=== PATIENT | male | born 1995 | race Hispanic/Latino ===

== ENCOUNTER 2017-02-19 19:31 | Emergency (ER) | payer OTHER ==
[2017-02-19 19:38] VITALS: BMI 29.0
[2017-02-19] MEDS ORDERED: Sodium Chloride 0.9% 1,000 ML IV STA (19:40)
[2017-02-19 19:42] VITALS: BP 154/80; TEMP 99
[2017-02-19 20:26] LABS: BASO # 0.02 K/mm3 (0.0-2.0); BASO % 0.2 % (0.0-3.0); EOS % 0.4 % (1.5-5.0); GRAN # 7.67 (1.4-6.5); HEMATOCRIT 47.8 % (42.0-52.0); LYMPH # 1.3 (1.2-3.4); LYMPH % 12.2 % (22.0-35.0); MEAN CELL VOLUME 87.4 fl (80.0-105.0); MEAN CORPUSCULAR HEMOGLOBIN 31.1 pg (25.0-35.0); MEAN CORPUSCULAR HGB CONC 35.6 g/dl (31.0-37.0); MEAN PLATELET VOLUME 11.4 fl (7.0-11.0); MONO # 1.4 (0.1-0.6); MONO % 13.2 % (1.0-6.0); RED CELL DISTRIBUTION WIDTH 12.7 % (11.5-14.5); WHITE BLOOD COUNT 10.4 10^3/ul (4.5-11.0)
[2017-02-19 20:32] LABS: ALB/GLOB RATIO 1.2 (1.1-1.8); ALKALINE PHOSPHATASE 116 U/L (38-126); ALT/SGPT 147 U/L (7-56); AST/SGOT 127 U/L (17-59); BILIRUBIN,TOTAL 1.1 mg/dL (0.2-1.3); BLOOD UREA NITROGEN 10 mg/dL (7-21); CALCIUM 9.6 mg/dL (8.4-10.5); CARBON DIOXIDE 29 mmol/L (21-33); CHLORIDE 97 mmol/L (98-107); GFR AFRICAN-AMERICAN > 60; GLUCOSE,RANDOM 104 mg/dL (70-110); INR 1.39 (0.93-1.08); LIPASE 57 U/L (23-300); POTASSIUM 3.9 mmol/L (3.6-5.0); SODIUM 137 mmol/L (132-148); TOTAL PROTEIN 7.7 g/dL (5.8-8.3)
[2017-02-19 21:19] LABS: PH,URINE 6.5 (4.7-8.0); URINE BILIRUBIN MODERATE (NEGATIVE); URINE BLOOD SMALL (NEGATIVE); URINE GLUCOSE (UA) NEGATIVE (NEGATIVE); URINE KETONE >=80 mg/dL (NEGATIVE); URINE LEUKOCYTE ESTERASE NEGATIVE Leu/uL (NEGATIVE); URINE PROTEIN 100 mg/dL (<30 mg/dL)
[2017-02-19 21:21] LABS: URINE APPEARANCE CLEAR (CLEAR); URINE COLOR DARK YELLOW (YELLOW)
[2017-02-19 21:22] LABS: URINE BACTERIA TRACE (NEG)
--- NOTE | 2017-02-19 21:43 | ED PDOC ---
Arrival/HPI - General Chief Complaint: GI Problem Time Seen by Provider: 02/19/17 19:40 Historian: Patient - History of Present Illness Narrative History of Present Illness (Text): 02/19/17 21:38 21yo male with no PMhx present with complaint of nausea, vomiting, diarrhea, sore throat and subjective fever x6days. PAtient was seen by the PMD on Tuesday and strep test was negative at that time. The mother states the PMD gave patient for lab if her continue having symptom, to r/o mono. Patient did not take any medication at home. Denies sick contact, travel, hematuria, Le edema, dizziness, travel. Past Medical History - Provider Review Nursing Documentation Reviewed: Yes - Past History Past History: No Previous - Infectious Disease Hx of Infectious Diseases: None - Tetanus Immunization Tetanus Immunization: Up to Date - Psychiatric Hx Depression: No Hx Emotional Abuse: No Hx Physical Abuse: No Hx Substance Use: No - Past Surgical History Past Surgical History: No Previous - Anesthesia Hx Anesthesia: No - Suicidal Assessment Feels Threatened In Home Enviroment: No Family/Social History - Physician Review Nursing Documentation Reviewed: Yes Family/Social History: Unknown Family HX Smoking Status: Light Smoker < 10 Cigarettes Daily Hx Alcohol Use: Yes Frequency of alcohol use: Socially Hx Substance Use: No Hx Substance Use Treatment: No Allergies/Home Meds Allergies/Adverse Reactions: Allergies No Known Allergies Allergy (Verified 12/16/12 20:56) Review of Systems - Physician Review All systems were reviewed & negative as marked: Yes - Review of Systems Constitutional: Fevers Eyes: Normal ENT: Sore Throat Respiratory: Normal Cardiovascular: Normal Gastrointestinal: Abdominal Pain, Diarrhea, Nausea, Vomiting. absent: Constipation, Hematochezia, Hematemesis Genitourinary Male: Normal Musculoskeletal: Normal Skin: Normal Neurological: Normal Endocrine: Normal Hemo/Lymphatic: Normal Psychiatric: Normal Physical Exam Vital Signs Reviewed: Yes Vital Signs Temp Pulse Resp BP Pulse Ox 02/19/17 19:41 99.0 F 102 H 18 154/80 H 100 Temperature: Afebrile Blood Pressure: Normal Pulse: Regular Respiratory Rate: Normal Appearance: Positive for: Well-Appearing, Non-Toxic, Comfortable Pain Distress: None Mental Status: Positive for: Alert and Oriented X 3 - Systems Exam Head: Present: Atraumatic, Normocephalic Pupils: Present: PERRL Extroacular Muscles: Present: EOMI Conjunctiva: Present: Normal Mouth: Present: Moist Mucous Membranes Pharnyx: Present: Normal. No: ERYTHEMA, EXUDATE, TONSILS ENLARGED, Peritonsilar Swelling, Uvular Deviation, Muffled/Hoarse Voice, Strider Neck: Present: Normal Range of Motion Respiratory/Chest: Present: Clear to Auscultation, Good Air Exchange. No: Respiratory Distress, Accessory Muscle Use Cardiovascular: Present: Regular Rate and Rhythm, Normal S1, S2. No: Murmurs Abdomen: Present: Normal Bowel Sounds, Other (Soft). No: Tenderness, Distention , Peritoneal Signs, Rebound, Guarding, McBurney's Point Tender, Rovsing's Sign Present Back: Present: Normal Inspection Upper Extremity: Present: Normal Inspection. No: Cyanosis, Edema Lower Extremity: Present: Normal Inspection. No: Edema Neurological: Present: GCS=15, CN II-XII Intact, Speech Normal Skin: Present: Warm, Dry, Normal Color. No: Rashes Psychiatric: Present: Alert, Oriented x 3, Normal Insight, Normal Concentration Medical Decision Making ED Course and Treatment: 02/19/17 21:44 PT in ED for stated history. He was comfortable nd not lethargic in ED Lab was nonspecific with elevated LFt's noted and normal Tbili likely viral cause. Pt was hydrated, zofran and pepcid given. He complained of headache while in ED and was given Tylenol. EBV is pending. All result was DW the pt. His symptoms are likely viral. He was advised to drink plenty of fluid. Zofran rx given. Advised to avoid strenuous activity / sport until his cleared by his PMD. TRT ED for any new or worsening symptoms - Lab Interpretations Lab Results: 02/19/17 19:57 02/19/17 19:57 Lab Results 02/19/17 20:45: Grp A Beta Strep Ag Negative 02/19/17 20:35: Urine Color Dark yellow, Urine Appearance Clear, Urine pH 6.5, Ur Specific [place] 1.025, Urine Protein 100 H, Urine Glucose (UA) Negative, Urine Ketones >=80, Urine Blood Small H, Urine Nitrate Negative, Urine Bilirubin Moderate H, Urine Urobilinogen 4.0 H, Ur Leukocyte Esterase Negative, Urine RBC 1 - 3, Urine WBC 1 - 3, Ur Epithelial Cells 1 - 3, Urine Bacteria Trace 02/19/17 19:57: Sodium 137, Potassium 3.9, Chloride 97 L, Carbon Dioxide 29, Anion Gap 15, BUN 10, Creatinine 1.0, Est GFR ( Amer) > 60, Est GFR (Non- Af Amer) > 60, Random Glucose 104, Calcium 9.6, Total Bilirubin 1.1, AST 127 H, ALT 147 H, Alkaline Phosphatase 116, Total Protein 7.7, Albumin 4.2, Globulin 3.6, Albumin/Globulin Ratio 1.2, Lipase 57 02/19/17 19:57: PT 15.3 H, INR 1.39 H, APTT 30.0 02/19/17 19:57: WBC 10.4, RBC 5.47, Hgb 17.0, Hct 47.8, MCV 87.4, MCH 31.1, MCHC 35.6, RDW 12.7, Plt Count 182, MPV 11.4 H, Gran % 74.0 H, Lymph % (Auto) 12.2 L, [place] % (Auto) 13.2 H, Eos % (Auto) 0.4 L, Baso % (Auto) 0.2, Gran # 7.67 H, Lymph # 1.3, Garfield # 1.4 H, Eos # 0.0, Baso # 0.02 - Medication Orders Current Medication Orders: Discontinued Medications Acetaminophen (Tylenol 325mg Tab) 650 mg PO STAT STA Stop: 02/19/17 21:18 Last Admin: 02/19/17 21:23 Dose: 650 mg MAR Pain/Vitals Document 02/19/17 21:23 SS (Rec: 02/19/17 21:23 SS [facility] [id number]) Pain Reassessment Is This A Pain ReAssessment? No Sleep Is patient sleeping during reassessment? No Presence of Pain Presence of Pain Yes Location Pain Location Body [employer] Famotidine (Pepcid) 20 mg IVP STAT STA Stop: 02/19/17 19:41 Last Admin: 02/19/17 20:02 Dose: 20 mg IVP Administration Document 02/19/17 20:02 SS (Rec: 02/19/17 20:08 SS [facility] [id number]) Charges for Administration # of IVP Administrations 1 Sodium Chloride (Sodium Chloride 0.9%) 1,000 mls @ 1,000 mls/hr IV .Q1H STA Stop: 02/19/17 20:39 Last Admin: 02/19/17 20:08 Dose: 1,000 mls/hr eMAR Start Stop Document 02/19/17 20:08 SS (Rec: 02/19/17 20:08 SS [facility] [id number]) Intravenous Solution Start Date 02/19/17 Start Time 20:08 End Date 02/19/17 End time 21:08 Total Infusion Time 60 Ondansetron HCl (Zofran Inj) 4 mg IVP STAT STA Stop: 02/19/17 19:41 Last Admin: 02/19/17 20:01 Dose: 4 mg IVP Administration Document 02/19/17 20:01 SS (Rec: 02/19/17 20:02 SS [facility] [id number]) Charges for Administration # of IVP Administrations 1 Disposition/Present on Arrival - Present on Arrival Any Indicators Present on Arrival: No History of DVT/PE: No History of Uncontrolled Diabetes: No Urinary Catheter: No History of Decub. Ulcer: No History Surgical Site Infection Following: None - Disposition Have Diagnosis and Disposition been Completed?: Yes Diagnosis: Viral syndrome Disposition: HOME/ ROUTINE Disposition Time: 21:50 Patient Plan: Discharge Condition: STABLE Discharge Instructions (ExitCare): Viral Syndrome (ED) Additional Instructions: Follow up with your doctor Avoid any strenuous activity/sport until cleared by your doctor Return to ED for any new or worsening symptoms Prescriptions: Ondansetron ODT [Zofran ODT] 4 mg PO Q6 #9 odt Referrals: PCP,NO [Primary Care Provider] - Follow up with primary Forms: [employer] (Polish)
[2017-02-19 22:17] VITALS: PULSE 82; RESP 20; O2SAT 98
[2017-02-23 23:42] LABS: EBV EA (D) AB IgG <9.00 U/mL (<9.00)
== END 2017-02-19 22:17 | disposition home or self-care (01) ==
LOC: ED 19:31
DX: B34.9 Viral infection, unspecified (principal); F17.210 Nicotine dependence, cigarettes, uncomplicated
CPT/HCPCS: 80053; 81001; 83690; 85025; 85610; 85730; 86663; 87070; 87430; 96361; 96374; 96375; 99283; J2405; J7040

== ENCOUNTER 2017-02-24 10:00 | Emergency (ER) | payer OTHER ==
[2017-02-24 10:01] VITALS: BMI 29.0
[2017-02-24 10:21] VITALS: RESP 18; TEMP 97.9
--- NOTE | 2017-02-24 10:53 | ED PDOC ---
Arrival/HPI - General Historian: Patient, Parent - History of Present Illness Time/Duration: < week Symptom Onset: Gradual Symptom Course: Unchanged Quality: Aching, Other (stinging ) Severity Level: Moderate Activities at Onset: Rest <Nick Chow - Last Filed: 02/24/17 14:07> <Del Sparrow - Last Filed: 02/24/17 14:32> - General Chief Complaint: Upper Extremity Problem/Injury Time Seen by Provider: 02/24/17 10:03 - History of Present Illness Narrative History of Present Illness (Text): 02/24/17 10:48 This is a 21 yo male with no significant past medical or surgical hx presenting to ER with chief complaint of B/L upper extremity pain. Pt is accompanied by his mother. Pt was recently seen in this ER on 02/19 with nausea, vomiting, diarrhea, dx with viral infection, and discharged home. He returns today with left forearm pain x 4 days and 1 day of right arm/shoulder pain. He denies trauma. He says this has never happened before. He does say he uses his arms a lot at work. He says the pain in his left arm is mainly located in his forearm and it is a "stinging, tingling" sensation. The pain on his right is more localized to his shoulder and it has an "achy" sensation. The pain on the left comes and goes while the pain on the right has been constant since starting yesterday. He denies any other systemic symptoms. He rates the pain 7/10 and says he has had trouble sleeping because of the pain. He has taken tylenol with no relief. Nothing makes it better or worse. PMH: Denies PSH: Denies Allergies: NKDA FH: lupus (mother) Home meds: none Social hx: cigar smoker. social drinker. denies drug use. 02/24/17 11:08 (Nick Chow) Past Medical History - Provider Review Nursing Documentation Reviewed: Yes - Past History Past History: No Previous - Infectious Disease Hx of Infectious Diseases: None - Tetanus Immunization Tetanus Immunization: Up to Date - Cardiac Hx Cardiac Disorders: No - Pulmonary Hx Respiratory Disorders: No - Neurological Hx Neurological Disorder: No - HEENT Hx HEENT Disorder: No - Renal Hx Renal Disorder: No - Endocrine/Metabolic Hx Endocrine Disorders: No - Hematological/Oncological Hx Blood Disorders: No - Integumentary Hx Dermatological Disorder: No - Musculoskeletal/Rheumatological Hx Musculoskeletal Disorders: No - Gastrointestinal Hx Gastrointestinal Disorders: No - Genitourinary/Gynecological Hx Genitourinary Disorders: No - Psychiatric Hx Psychophysiologic Disorder: No Hx Depression: No Hx Emotional Abuse: No Hx Physical Abuse: No Hx Substance Use: No - Past Surgical History Past Surgical History: No Previous - Anesthesia Hx Anesthesia: No - Suicidal Assessment Feels Threatened In Home Enviroment: No <Nick Chow - Last Filed: 02/24/17 14:07> Family/Social History - Physician Review Nursing Documentation Reviewed: Yes Family/Social History: Other (lupus) Smoking Status: Light Smoker < 10 Cigarettes Daily Hx Alcohol Use: Yes Hx Substance Use: No Hx Substance Use Treatment: No <Nick Chow - Last Filed: 02/24/17 14:07> Allergies/Home Meds <Nick Chow - Last Filed: 02/24/17 14:07> <Del Sparrow - Last Filed: 02/24/17 14:32> Allergies/Adverse Reactions: Allergies No Known Allergies Allergy (Verified 02/24/17 10:20) Home Medications: Home Meds Medication Instructions Recorded Confirmed Ondansetron ODT [Zofran ODT] 4 mg PO Q6 PRN 02/24/17 02/24/17 Review of Systems - Review of Systems Constitutional: absent: Weight Change, Fevers Eyes: absent: Vision Changes, Photophobia ENT: absent: Hearing Changes, Tinnitus Respiratory: absent: SOB, Cough Cardiovascular: absent: Chest Pain, Palpitations Gastrointestinal: absent: Abdominal Pain, Stool Changes Genitourinary Male: absent: Dysuria, Frequency Musculoskeletal: Myalgias. absent: Back Pain, Neck Pain, Joint Swelling Skin: absent: Rash, Pruritis Neurological: absent: Headache, Dizziness Endocrine: absent: Diaphoresis, Polyuria Hemo/Lymphatic: absent: Adenopathy, Easy Bleeding Psychiatric: absent: Anxiety, Depression <Nick Chow - Last Filed: 02/24/17 14:07> Physical Exam Vital Signs Reviewed: Yes Mental Status: Positive for: Alert and Oriented X 3 - Systems Exam Head: Present: Atraumatic, Normocephalic Pupils: Present: PERRL Extroacular Muscles: Present: EOMI Mouth: Present: Moist Mucous Membranes Respiratory/Chest: Present: Clear to Auscultation. No: Respiratory Distress Cardiovascular: Present: Regular Rate and Rhythm, Normal S1, S2 Abdomen: Present: Normal Bowel Sounds. No: Tenderness, Peritoneal Signs Upper Extremity: Present: Normal Inspection, NORMAL PULSES, Neurovascularly Intact, Other (minimal tenderness to palpation left forearm ). No: Cyanosis, Edema, Normal ROM (slightly reduced active and passive range of motion), Swelling, Erythema, Deformity Lower Extremity: Present: Normal Inspection. No: Edema Neurological: Present: CN II-XII Intact, Speech Normal Skin: Present: Warm, Dry Psychiatric: Present: Alert, Oriented x 3, Normal Insight, Normal Concentration <Nick Chow - Last Filed: 02/24/17 14:07> Temperature: Afebrile Blood Pressure: Normal Pulse: Tachycardic Respiratory Rate: Normal Appearance: Positive for: Non-Toxic <Del Sparrow - Last Filed: 02/24/17 14:32> Vital Signs Temp Pulse Resp BP Pulse Ox 02/24/17 11:45 86 18 104/71 98 02/24/17 10:13 97.9 F 95 H 18 102/69 97 Medical Decision Making <Nick Chow - Last Filed: 02/24/17 14:07> <Del Sparrow - Last Filed: 02/24/17 14:32> ED Course and Treatment: 02/24/17 10:57 21 yo male presenting with B/L arm pain -will order BMP -will give IV toradol -reassess (Nick Chow) 02/24/17 11:48 Patient Seen With Resident: In agreement with resident note which contains more details about the patient. Patient was seen and evaluated with resident. Came up with plan and treatment together. The patient is a 21 year old male with arm pain. The patient's treatment plan includes labs and PO Motrin. Patient did not want IV Toradol. After medication patient felt much better. Chemistry panel was normal. No electrolyte abnormalities. Mom has an autoimmune history so she will make sure he gets that work up with his primary care doctor. The patient will be discharged home. (Del Sparrow) - Lab Interpretations Lab Results: 02/24/17 11:00 Lab Results 02/24/17 11:00: Sodium 141, Potassium 4.1, Chloride 105, Carbon Dioxide 27, Anion Gap 13, BUN 12, Creatinine 0.9, Est GFR ( Amer) > 60, Est GFR (Non- Af Amer) > 60, Random Glucose 102, Calcium 9.6 - Medication Orders Current Medication Orders: Discontinued Medications Ibuprofen (Motrin Tab) 600 mg PO STAT STA Stop: 02/24/17 11:08 Last Admin: 02/24/17 11:13 Dose: 600 mg <Nick Chow - Last Filed: 02/24/17 14:07> - Scribe Statement The provider has reviewed the documentation as recorded by the Scribe <Del Sparrow - Last Filed: 02/24/17 14:32> - Scribe Statement Maricel Carey Provider Scribe Attestation: All medical record entries made by the Scribe were at my direction and personally dictated by me. I have reviewed the chart and agree that the record accurately reflects my personal performance of the history, physical exam, medical decision making, and the department course for this patient. I have also personally directed, reviewed, and agree with the discharge instructions and disposition. (Del Sparrow) Disposition/Present on Arrival - Present on Arrival Any Indicators Present on Arrival: No History of DVT/PE: No History of Uncontrolled Diabetes: No Urinary Catheter: No History of Decub. Ulcer: No History Surgical Site Infection Following: None - Disposition Have Diagnosis and Disposition been Completed?: Yes Disposition Time: 12:00 Patient Plan: Discharge <Nick Chow - Last Filed: 02/24/17 14:07> <Del Sparrow - Last Filed: 02/24/17 14:32> - Disposition Diagnosis: Arm pain, Muscular aches Disposition: HOME/ ROUTINE Condition: IMPROVED Discharge Instructions (ExitCare): Muscle Strain (ED), Peripheral Neuropathy ( ED) Additional Instructions: Mr Dobbins, thank you for letting us take care of you today. Your provider was Dr. Sparrow. You were treated for Neuropathy, Musculoskeletal. The emergency medical care you received today was directed at your acute symptoms. If you were prescribed any medication, please fill it and take as directed. It may take several days for your symptoms to resolve. Return to the Emergency Department if your symptoms worsen, do not improve, or if you have any other problems. Please contact your doctor or call one of the physicians/clinics you have been referred to that are listed on the Patient Visit Information form that is included in your discharge packet. Bring any paperwork you were given at discharge with you along with any medications you are taking to your follow up visit. Our treatment cannot replace ongoing medical care by a primary care provider (PCP) outside of the emergency department. Thank you for allowing the [facility] team to be part of your care today. If you had an X-Ray or CT scan: A Radiologist will review the ED reading if any change in treatment is needed we will contact you. If you had a blood, urine, or wound culture: It will take several days for the results, if any change in treatment is needed we will contact you. If you had an STI test: It will take 48 hours for the results. Please call after 1 week if you have not heard back. Prescriptions: Ibuprofen [Motrin] 600 mg PO Q6 PRN #30 tab PRN Reason: Pain, Moderate (4-7) Referrals: Hussein Quijano MD [Family Provider] - Follow up with primary Forms: [employer] (Serbian), WORK NOTE
[2017-02-24 11:26] LABS: BLOOD UREA NITROGEN 12 mg/dL (7-21); CALCIUM 9.6 mg/dL (8.4-10.5); CARBON DIOXIDE 27 mmol/L (21-33); CHLORIDE 105 mmol/L (98-107); GFR AFRICAN-AMERICAN > 60; GLUCOSE,RANDOM 102 mg/dL (70-110); POTASSIUM 4.1 mmol/L (3.6-5.0); SODIUM 141 mmol/L (132-148)
[2017-02-24 11:52] VITALS: BP 104/71; PULSE 86; O2SAT 98
== END 2017-02-24 11:54 | disposition home or self-care (01) ==
LOC: ED 10:00
DX: M79.1 Myalgia (principal); M79.602 Pain in left arm; M79.601 Pain in right arm

== ENCOUNTER 2018-07-05 22:58 | Emergency (ER) | payer BC, OTHER ==
[2018-07-05 22:58] VITALS: BMI 29.0
--- NOTE | 2018-07-06 00:29 | ED PDOC ---
Arrival/HPI - General Chief Complaint: Abnormal Skin Integrity Time Seen by Provider: 07/05/18 23:04 Historian: Patient - History of Present Illness Narrative History of Present Illness (Text): 07/06/18 00:30 22-year-old male presents today with a 2-day history of abscess to the left buttocks. Patient states he has been applying warm compresses and cream to the area. Patient states today he noticed some purulent discharge being released. Patient denies fevers or chills. He is complaining of pain to the site. No medications have been taken by mouth for pain at home. No other complaints Past Medical History - Provider Review Nursing Documentation Reviewed: Yes - Travel History Have you recently traveled outside [place] w/in the past 3 mons?: No - Past History Past History: No Previous - Infectious Disease Hx of Infectious Diseases: None - Tetanus Immunization Tetanus Immunization: Up to Date - Cardiac Hx Cardiac Disorders: No - Pulmonary Hx Respiratory Disorders: No - Neurological Hx Neurological Disorder: No - HEENT Hx HEENT Disorder: No - Renal Hx Renal Disorder: No - Endocrine/Metabolic Hx Endocrine Disorders: No - Hematological/Oncological Hx Blood Disorders: No - Integumentary Hx Dermatological Disorder: No - Musculoskeletal/Rheumatological Hx Musculoskeletal Disorders: No - Gastrointestinal Hx Gastrointestinal Disorders: No - Genitourinary/Gynecological Hx Genitourinary Disorders: No - Psychiatric Hx Psychophysiologic Disorder: No Hx Depression: No Hx Emotional Abuse: No Hx Physical Abuse: No Hx Substance Use: No - Past Surgical History Past Surgical History: No Previous - Anesthesia Hx Anesthesia: No - Suicidal Assessment Feels Threatened In Home Enviroment: No Family/Social History - Physician Review Nursing Documentation Reviewed: Yes Family/Social History: Unknown Family HX Smoking Status: Light Smoker < 10 Cigarettes Daily Hx Alcohol Use: Yes Hx Substance Use: No Hx Substance Use Treatment: No Allergies/Home Meds Allergies/Adverse Reactions: Allergies No Known Allergies Allergy (Verified 07/05/18 23:22) Review of Systems - Review of Systems Constitutional: absent: Fatigue, Fevers Respiratory: absent: SOB, Cough Cardiovascular: absent: Chest Pain, Palpitations Musculoskeletal: absent: Back Pain Skin: Abscess. absent: Pruritis Neurological: absent: Headache Physical Exam Vital Signs Reviewed: Yes Temperature: Afebrile Blood Pressure: Normal Pulse: Regular Respiratory Rate: Normal Appearance: Positive for: Well-Appearing, Non-Toxic, Comfortable Pain Distress: None Mental Status: Positive for: Alert and Oriented X 3 - Systems Exam Head: Present: Atraumatic Mouth: Present: Moist Mucous Membranes Respiratory/Chest: Present: Clear to Auscultation Cardiovascular: Present: Regular Rate and Rhythm Back: Present: Normal Inspection Neurological: Present: GCS=15, Speech Normal Skin: Present: Warm, Dry, Normal Color, Abscess (Left medial buttock; there is a tender 2cm area of erythema with purulent discharge noted; + fluctuance. slight surrounding induration.) Psychiatric: Present: Alert, Oriented x 3 Medical Decision Making ED Course and Treatment: 07/06/18 00:32 Patient is nontoxic well-appearing in no distress. Vital signs are stable. Motrin po keflex po Bactrim DS p.o. I&D performed Patient reassessment: Patient nontoxic well-appearing no distress with stable vital signs. Patient was advised to use warm compresses frequently. Return to the emergency room in 2 days for packing removal. return immediately if symptoms worsen persist or if new symptoms develop. Patient was advised to follow-up with a surgeon within the next 2 days. Patient verbalizes understanding of discharge instructions and need for immediate followup. All aspects of this case were discussed the attending of record. Impression: Abscess, buttock Motrin one tablet every 6 hours as needed for pain Keflex; 1 capsule 4 times daily x 7 days. Bactrim DS: One tablet twice daily x7 days Warm compresses frequently Return in 2 days for packing removal and wound check Follow up with the surgeon within the next 2 days. Return immediately if symptoms worsen persist or if new symptoms develop: High fevers, increasing pain, increasing redness, swelling or if any other concerning symptoms develop. Procedures - Incision and Drainage Site: left medial buttock Blade Size: 11 I & D Procedure: sterile drapes applied, sterile dressing applied, gauze wick placed Progress: Left buttocks/ medial aspect: Area was prepped and draped in sterile fashion. 6 cc of lidocaine 1% injected locally. Adequate anesthesia. Small quarter inch incision was made over the central fluctuance. Moderate amount of purulent discharge released. Wound explored for loculations. Quarter inch sterile gauze packing applied dressing placed. Patient tolerated procedure well. No complications. Disposition/Present on Arrival - Present on Arrival Any Indicators Present on Arrival: No History of DVT/PE: No History of Uncontrolled Diabetes: No Urinary Catheter: No History of Decub. Ulcer: No History Surgical Site Infection Following: None - Disposition Have Diagnosis and Disposition been Completed?: Yes Diagnosis: Abscess of buttock Disposition: HOME/ ROUTINE Disposition Time: 00:26 Patient Plan: Discharge Patient Problems: Current Active Problems Problem Status Onset Abscess of buttock Acute Condition: GOOD Discharge Instructions (ExitCare): Abscess Incision and Drainage, Boil (DC) Additional Instructions: Motrin one tablet every 6 hours as needed for pain Keflex; 1 capsule 4 times daily x 7 days. Bactrim DS: One tablet twice daily x7 days Warm compresses frequently Follow up with the surgeon within the next 2 days. Return in 2 days for packing removal and wound check Return immediately if symptoms worsen persist or if new symptoms develop: High fevers, increasing pain, increasing redness, swelling or if any other concerning symptoms develop. Prescriptions: Cephalexin [Keflex] 500 mg PO QID #28 capsule Ibuprofen [Motrin] 600 mg PO Q6H PRN #20 tab PRN Reason: pain/fever reduction Sulfamethoxazole/Trimethoprim [Bactrim DS 800 mg-160 mg] 1 tab PO BID #14 tab Referrals: Ya Ferrer MD [Staff Provider] - Follow up with primary Marilyn Martínez MD [Medical Doctor] - Follow up with primary [facility] [Outside] - Follow up with primary Forms: [employer] (Irish), WORK NOTE
[2018-07-06] MEDS: Tmp-Smz 800 mg-160 mg DS Tab PO STA (00:38)
[2018-07-06 00:56] VITALS: RESP 18; O2SAT 100
[2018-07-06] MEDS ORDERED: Lidocaine 1% Inj (20ml) ONE (00:56)
[2018-07-06 02:21] VITALS: BP 118/66; PULSE 82; TEMP 98.2
== END 2018-07-06 01:20 | disposition home or self-care (01) ==
LOC: ED 22:58
DX: L02.31 Cutaneous abscess of buttock (principal); F17.210 Nicotine dependence, cigarettes, uncomplicated

== ENCOUNTER 2018-07-08 11:34 | Emergency (ER) | payer BC ==
[2018-07-08 11:35] VITALS: BMI 29.0
[2018-07-08 11:40] VITALS: BP 101/67; PULSE 77; RESP 18; TEMP 98.2; O2SAT 100
--- NOTE | 2018-07-08 11:51 | ED PDOC ---
Arrival/HPI - General Chief Complaint: Abnormal Skin Integrity Time Seen by Provider: 07/08/18 11:38 Historian: Patient - History of Present Illness Narrative History of Present Illness (Text): 07/08/18 11:50 Patient is a 22yo M with no significant PMH presenting to ED for packing removal s/p I&D of L buttocks abscess on 07/06/18. Patient denies any drainage, bleeding, or severe pain at the site. He denies fever, chills, abdominal pain, nausea, vomiting. He reports taking his antibiotics daily. He has no other complaints today. Past Medical History - Past History Past History: No Previous - Infectious Disease Hx of Infectious Diseases: None - Tetanus Immunization Tetanus Immunization: Up to Date - Cardiac Hx Cardiac Disorders: No - Pulmonary Hx Respiratory Disorders: No - Neurological Hx Neurological Disorder: No - HEENT Hx HEENT Disorder: No - Renal Hx Renal Disorder: No - Endocrine/Metabolic Hx Endocrine Disorders: No - Hematological/Oncological Hx Blood Disorders: No - Integumentary Hx Dermatological Disorder: No - Musculoskeletal/Rheumatological Hx Musculoskeletal Disorders: No - Gastrointestinal Hx Gastrointestinal Disorders: No - Genitourinary/Gynecological Hx Genitourinary Disorders: No - Psychiatric Hx Psychophysiologic Disorder: No Hx Depression: No Hx Emotional Abuse: No Hx Physical Abuse: No Hx Substance Use: No - Past Surgical History Past Surgical History: No Previous - Anesthesia Hx Anesthesia: No Hx Anesthesia Reactions: No Hx Malignant Hyperthermia: No - Suicidal Assessment Feels Threatened In Home Enviroment: No Family/Social History Family/Social History: No Known Family HX Smoking Status: Light Smoker < 10 Cigarettes Daily Hx Alcohol Use: Yes Hx Substance Use: No Hx Substance Use Treatment: No Allergies/Home Meds Allergies/Adverse Reactions: Allergies No Known Allergies Allergy (Verified 07/08/18 11:40) Review of Systems - Review of Systems Constitutional: Normal. absent: Fevers Eyes: Normal ENT: Normal Respiratory: Normal. absent: SOB Cardiovascular: Normal. absent: Chest Pain Gastrointestinal: Normal. absent: Abdominal Pain, Diarrhea, Nausea, Vomiting Genitourinary Male: Normal, Other. absent: Dysuria Skin: Abscess Neurological: Normal Psychiatric: Normal Physical Exam Vital Signs Reviewed: Yes Vital Signs Temp Pulse Resp BP Pulse Ox 07/08/18 11:37 98.2 F 77 18 101/67 100 Temperature: Afebrile Blood Pressure: Normal Pulse: Regular Respiratory Rate: Normal Appearance: Positive for: Well-Appearing, Non-Toxic, Comfortable Pain Distress: None Mental Status: Positive for: Alert and Oriented X 3 - Systems Exam Head: Present: Atraumatic, Normocephalic Pupils: Present: PERRL Extroacular Muscles: Present: EOMI Conjunctiva: Present: Normal Mouth: Present: Moist Mucous Membranes Neck: Present: Normal Range of Motion Respiratory/Chest: Present: Clear to Auscultation, Good Air Exchange. No: Respiratory Distress, Accessory Muscle Use Cardiovascular: Present: Regular Rate and Rhythm, Normal S1, S2. No: Murmurs Abdomen: Present: Normal Bowel Sounds. No: Tenderness, Distention, Peritoneal Signs Upper Extremity: Present: Normal Inspection. No: Cyanosis, Edema Lower Extremity: No: Edema Neurological: Present: GCS=15, CN II-XII Intact, Speech Normal Skin: Present: Abscess (1x1cm well-healing abscess on L medial gluteal cheek. no drainage noted. ) Psychiatric: Present: Alert, Oriented x 3, Normal Insight, Normal Concentration Medical Decision Making ED Course and Treatment: 07/08/18 11:54 Packing removed. - Procedure PROCEDURE NOTE (Text): 07/08/18 11:54 Iodoform packing removed from abscess site. Patient tolerated procedure well. Disposition/Present on Arrival - Present on Arrival Any Indicators Present on Arrival: No History of DVT/PE: No History of Uncontrolled Diabetes: No Urinary Catheter: No History of Decub. Ulcer: No History Surgical Site Infection Following: None - Disposition Have Diagnosis and Disposition been Completed?: Yes Diagnosis: Abscess Disposition: HOME/ ROUTINE Disposition Time: 12:33 Patient Problems: Current Active Problems Problem Status Onset Abscess Acute Condition: STABLE Discharge Instructions (ExitCare): Abscess Incision and Drainage (DC) Additional Instructions: If you experience fever, chills, draining, bleeding, nausea, or vomiting or recurrence of symptoms, return to the emergency department. Please return to the emergency department in 3 days to remove your packing. Please follow up with your primary care physician for routine care. Forms: [employer] (Ukrainian)
[2018-07-08] MEDS ORDERED: Oxycodone/Acetaminophen 5/325 mg Tab PO STA (12:06)
== END 2018-07-08 12:45 | disposition home or self-care (01) ==
LOC: ED 11:34
DX: L02.31 Cutaneous abscess of buttock (principal)

== ENCOUNTER 2018-07-11 14:13 | Emergency (ER) | payer BC ==
[2018-07-11 14:13] VITALS: BMI 29.0
[2018-07-11 15:30] VITALS: O2SAT 99
[2018-07-11 16:24] VITALS: BP 120/76; PULSE 72; RESP 16; TEMP 98.4
--- NOTE | 2018-07-11 16:52 | ED PDOC ---
Arrival/HPI - General Chief Complaint: Wound Check Time Seen by Provider: 07/11/18 14:14 Historian: Patient - History of Present Illness Narrative History of Present Illness (Text): 07/11/18 16:00 22yr old male presents today for wound check to the left buttock. pt states he was in the ER 5 days ago and had I&D of abscess. pt returned 3 days ago and had abscess re-packed. pt states yesterday he removed the bandage and when he went to reapply the dressing he didnt see any packing in place. pt states he is feeling much better. denies pain. no fever/chills. no trouble with bowel movements. pt states he is taking abx as prescribed. pt states he has not followed up with the surgeon. Past Medical History - Provider Review Nursing Documentation Reviewed: Yes - Travel History Have you recently traveled outside [place] w/in the past 3 mons?: No - Past History Past History: No Previous - Infectious Disease Hx of Infectious Diseases: None - Tetanus Immunization Tetanus Immunization: Up to Date - Cardiac Hx Cardiac Disorders: No - Pulmonary Hx Respiratory Disorders: No - Neurological Hx Neurological Disorder: No - HEENT Hx HEENT Disorder: No - Renal Hx Renal Disorder: No - Endocrine/Metabolic Hx Endocrine Disorders: No - Hematological/Oncological Hx Blood Disorders: No - Integumentary Hx Dermatological Disorder: No - Musculoskeletal/Rheumatological Hx Musculoskeletal Disorders: No - Gastrointestinal Hx Gastrointestinal Disorders: No - Genitourinary/Gynecological Hx Genitourinary Disorders: No - Psychiatric Hx Psychophysiologic Disorder: No Hx Depression: No Hx Emotional Abuse: No Hx Physical Abuse: No Hx Substance Use: No - Past Surgical History Past Surgical History: No Previous - Anesthesia Hx Anesthesia: No Hx Anesthesia Reactions: No Hx Malignant Hyperthermia: No - Suicidal Assessment Feels Threatened In Home Enviroment: No Family/Social History - Physician Review Nursing Documentation Reviewed: Yes Family/Social History: Unknown Family HX Smoking Status: Light Smoker < 10 Cigarettes Daily Hx Alcohol Use: Yes Hx Substance Use: No Hx Substance Use Treatment: No Allergies/Home Meds Allergies/Adverse Reactions: Allergies No Known Allergies Allergy (Verified 07/08/18 11:40) Review of Systems - Review of Systems Constitutional: absent: Fatigue, Fevers Respiratory: absent: SOB, Cough Cardiovascular: absent: Chest Pain, Palpitations Gastrointestinal: absent: Abdominal Pain, Nausea, Vomiting Musculoskeletal: absent: Back Pain, Neck Pain Skin: Abscess Neurological: absent: Headache, Dizziness Psychiatric: absent: Anxiety, Depression Physical Exam Vital Signs Reviewed: Yes Vital Signs Temp Pulse Resp BP Pulse Ox 07/11/18 15:21 99.2 F 70 18 118/75 99 Temperature: Afebrile Blood Pressure: Normal Pulse: Regular Respiratory Rate: Normal Appearance: Positive for: Well-Appearing, Non-Toxic, Comfortable Pain Distress: None Mental Status: Positive for: Alert and Oriented X 3 - Systems Exam Head: Present: Atraumatic Mouth: Present: Moist Mucous Membranes Respiratory/Chest: Present: Clear to Auscultation Cardiovascular: Present: Regular Rate and Rhythm Back: Present: Normal Inspection Upper Extremity: Present: Normal ROM Lower Extremity: Present: Normal ROM Neurological: Present: GCS=15, Speech Normal Skin: Present: Warm, Dry, Normal Color, Other (left buttock; along the medial aspect there is a healing wound without surroudning erythema; no packing noted; minimal induration; non tender. ) Psychiatric: Present: Alert, Oriented x 3 Medical Decision Making ED Course and Treatment: 07/11/18 17:01 Patient is nontoxic well-appearing in no distress. Vital signs are stable. no packing noted; patient states he removed dressing yesterday and didnt see packing. Patient was advised to use warm compresses warm soaks. Pt was advised to continue the abx as prescribed. and to return immediately if symptoms worsen persist or if new symptoms develop Patient verbalizes understanding of discharge instructions and need for immediate followup. All aspects of this case were discussed the attending of record. Impression: Abscess, wound check Continue antibiotics as prescribed Warm compresses and warm soaks frequently. Follow-up with a surgeon within the next 2 days Follow-up with primary care physician within the next 2 days Return immediately if symptoms worsen persist or if new symptoms develop: High fevers, increasing pain, increasing redness, swelling or if any other concerning symptoms develop. Disposition/Present on Arrival - Present on Arrival Any Indicators Present on Arrival: No History of DVT/PE: No History of Uncontrolled Diabetes: No Urinary Catheter: No History of Decub. Ulcer: No History Surgical Site Infection Following: None - Disposition Have Diagnosis and Disposition been Completed?: Yes Diagnosis: Encounter for wound re-check Disposition: HOME/ ROUTINE Disposition Time: 15:58 Patient Plan: Discharge Condition: GOOD Discharge Instructions (ExitCare): Boil (DC) Additional Instructions: Continue antibiotics as prescribed Warm compresses and warm soaks frequently. Follow-up with a surgeon within the next 2 days Follow-up with primary care physician within the next 2 days Return immediately if symptoms worsen persist or if new symptoms develop: High fevers, increasing pain, increasing redness, swelling or if any other concerning symptoms develop. Referrals: Anthony Jamil MD [Staff Provider] - Follow up with primary Marilyn Martínez MD [Medical Doctor] - Follow up with primary Forms: [email or web address] (Micronesian), WORK NOTE
== END 2018-07-11 15:21 | disposition home or self-care (01) ==
LOC: ED 14:13
DX: Z51.89 Encounter for other specified aftercare (principal)